=== PATIENT | female | born 1945 | race Caucasian/White ===

== ENCOUNTER → 2017-05-14 | Outpatient (CLI) | payer MEDICARE ==
[2015-09-03 22:36] VITALS: BP 178/90
--- NOTE | 2017-05-14 14:42 | RAD ---
Clinical Indication: Headache and head pressure for 6 months. Technique: Study is dated May 14, 2017. CT images of the head were obtained from the skull base to the vertex without IV contrast. Comparison is from September 06, 2015. One or more of the following individualized dose reduction techniques were utilized for this examination: 1. Automated exposure control 2. Adjustment of the mA and/or kV according to patient size 3. Use of iterative reconstruction technique Findings: There is diffuse, symmetric prominence of the ventricles and subarachnoid spaces consistent with age-related parenchymal volume loss. There are areas of scattered decreased attenuation in the supratentorial white matter. While nonspecific, findings are likely secondary to small vessel ischemic disease. There is no hemorrhage, extraaxial fluid collection, mass, or midline shift. There is no large vascular distribution infarct. The posterior fossa and brain stem are unremarkable. Orbits are normal. The visualized paranasal sinuses are clear. There is no skull fracture appreciated on bone level images. Impression: No acute intracranial findings. Brain parenchymal volume loss and mild probable small vessel ischemic disease.
== END | disposition home or self-care (01) ==
LOC: CT 10:43
PROVIDERS: ATTEND Family Medicine
DX: R51 Headache (principal); I10 Essential (primary) hypertension
CPT/HCPCS: 70450

== ENCOUNTER → 2017-11-04 | Outpatient (CLI) | payer MEDICARE ==
[2015-09-03 22:36] VITALS: BP 178/90
--- NOTE | 2017-11-04 16:51 | RAD ---
Right elbow ultrasound, 11/04/2017: HISTORY: Discoloration, intermittent lump The area of clinical concern along the posterior aspect of the elbow was carefully scanned. There is mild subcutaneous edema. Several small hyperechoic foci in the subcutaneous soft tissues probably represent prominent fat lobules. No suspicious mass or discrete fluid collection is seen to suggest hematoma or abscess. Electronically signed by: Justino Mireles MD (11/04/2017 4:47 PM) [facility]
== END | disposition home or self-care (01) ==
LOC: US 15:02
PROVIDERS: ATTEND Nurse Practitioner Adult Health
DX: S50.01XA Contusion of right elbow, initial encounter (principal); X58.XXXA Exposure to other specified factors, initial encounter; Y93.89 Activity, other specified; Y92.89 Other specified places as the place of occurrence of the external cause; Y99.8 Other external cause status
CPT/HCPCS: 76881

== ENCOUNTER → 2018-02-26 | Outpatient (CLI) | payer MEDICARE ==
[2015-09-03 22:36] VITALS: BP 178/90
--- NOTE | 2018-02-26 16:49 | RAD ---
PA and lateral chest radiograph. History: Shortness of air. Previous CT scan. Comparison: October 18, 2011. Findings: Cardiomediastinal silhouette is within normal limits for size. Bilateral lung chow appear clear without evidence of infiltrate, effusion, or pneumothorax. Multiple thoracic levels demonstrate marginal disc osteophytes. Impression: 1. No acute cardiopulmonary process. Electronically signed by: Alex Mendez MD (02/26/2018 4:45 PM) [place] [id number]
== END | disposition home or self-care (01) ==
LOC: CT 13:34
PROVIDERS: ATTEND Family Medicine
DX: I26.99 Other pulmonary embolism without acute cor pulmonale (principal)
CPT/HCPCS: 71046

== ENCOUNTER → 2018-03-11 | Outpatient (CLI) | payer MEDICARE ==
[2015-09-03 22:36] VITALS: BP 178/90
--- NOTE | 2018-03-11 14:02 | RAD ---
CT of the chest without contrast 03/11/2018 INDICATION: Former smoker. 63-08-lpmn-year history of smoking. COMPARISON STUDY: Chest radiograph February 18, 2018. TECHNIQUE: Multidetector CT imaging of the chest was performed without the administration of IV contrast. FINDINGS: Heart size is within normal limits. No pericardial effusion is identified. Coronary calcification is noted. No pathologically enlarged mediastinal lymph nodes are seen. Scattered small mediastinal lymph nodes are noted. Evaluation of the mediastinum is somewhat limited without contrast. The pulmonary arteries are dilated measuring 3.3 cm on the right and 3.7 cm on the left. Findings can relate to pulmonary arterial hypertension. The right thyroid is not visualized. Correlate with surgical history. Limited visualization of the upper abdomen demonstrates a somewhat poorly delineated rounded mass in the posterior right liver measuring 3.8 cm in diameter (axial image 280). The appearance is nonspecific. The attenuation characteristics are greater on the expected for simple cysts. The left kidney is lobulated in contour. A smaller calcification is seen in the superior pole left kidney. Small nonobstructing stone is possible. No evidence of acute osseous abnormality is identified. Diffuse osteopenia is noted. Mild to moderate centrilobular emphysematous changes are seen. Linear opacities are seen in the left upper lobe and to a lesser degree the left lower lobe. Findings are suggestive of scarring. No pneumothorax, pleural effusion, or focal consolidative infiltrate is seen. There are a few 1 to 2 mm subpleural opacities (reference nodule image 34 in the anterior left upper lobe). IMPRESSION: 1. Dilatation of the bilateral pulmonary arteries. Finding most commonly associated pulmonary arterial hypertension. 2. Mild to moderate centrilobular emphysema 3. 3.8 cm mildly hypoattenuating mass in the posterior right liver. Finding is nonspecific. Neoplasm not excluded. Multiphase hepatic MRI recommended for further characterization 4. Scattered 1 to 2 mm subpleural nodules. Recommend repeat CT chest in one year. Given provided history, annual CT screening may be appropriate. 5. Coronary calcifications. CT DOSING PQRS STATEMENT: One or more of the following individualized dose reduction techniques were utilized for this examination: 1. Automated exposure control 2. Adjustment of the mA and/or kV according to patient size 3. Use of iterative reconstruction technique Electronically signed by: Casa Baum MD (03/11/2018 1:59 PM) [facility]
== END | disposition home or self-care (01) ==
LOC: CT 12:47
PROVIDERS: ATTEND Internal Medicine Pulmonary Disease
DX: J43.2 Centrilobular emphysema (principal); I28.1 Aneurysm of pulmonary artery; R91.8 Other nonspecific abnormal finding of lung field; I25.10 Atherosclerotic heart disease of native coronary artery without angina pectoris; M85.88 Other specified disorders of bone density and structure, other site; Z87.891 Personal history of nicotine dependence
CPT/HCPCS: 71250

== ENCOUNTER 2018-08-05 09:39 | Emergency (ER) | payer MEDICARE ==
[~2018-08-05] VITALS: Ht 167.6 cm; Wt 105.2 kg
--- NOTE | 2018-08-05 09:59 | PHYS DOC ---
Past History Past Medical History: Arthritis, Asthma, High Cholesterol, Hypertension Past Surgical History: Hysterectomy Alcohol Use: None Drug Use: None Adult General Chief Complaint Chief Complaint: SHORTNESS OF BREATH HPI HPI Patient is a 73-year-old female who presents with difficulty breathing. This is been present for about the past month, much worse over the past week. She notes dyspnea with exertion as well as with laying flat and woke up at approximately 4 :00 this morning due to shortness of breath. Patient denies any cough. Denies any fever. Denies any travel, trauma, stasis, or known hypercoagulable state. She denies any new leg swelling and reports that her shoes fit the same as they always do. Patient notes that she was supposed to have an appointment with her primary care physician at approximately 4:30 today but felt that she could not wait until then. She also notes a feeling of fullness left lower chest, like she cannot take a deep breath "like there is a bra squeezing that area." She denies that this gets worse with exertion.[] Review of Systems Review of Systems Constitutional: Denies fever or chills [] Eyes: Denies change in visual acuity, redness, or eye pain [] HENT: Denies nasal congestion or sore throat [] Respiratory: Denies cough, see history of present illness [] Cardiovascular: No chest discomfort other than as noted in history of present illness, no palpitations[] GI: Denies abdominal pain, nausea, vomiting, bloody stools, she notes that she' s been having some diarrhea. Last time was earlier this week. Her is in an assisted care facility and is being treated for C. difficile. [] : Denies dysuria or hematuria [] Musculoskeletal: Denies back pain or joint pain [] Integument: Denies rash or skin lesions [] Neurologic: Denies headache, focal weakness or sensory changes [] Endocrine: Denies polyuria or polydipsia [] All other systems were reviewed and found to be within normal limits, except as documented in this note. Allergies Allergies Allergies Coded Allergies Type Severity Reaction Last Updated Verified Iodine and Iodide Containing Produc Allergy Intermediate 09/03/15 Yes cefazolin Allergy Intermediate 09/03/15 Yes codeine Allergy Intermediate 09/03/15 Yes morphine Allergy Intermediate 09/03/15 Yes shellfish derived Allergy Intermediate 4/4/16 Yes Physical Exam Physical Exam Constitutional: Well developed, well nourished, mild discomfort, pursed lip breathing, non-toxic appearance. [] HENT: Normocephalic, atraumatic, bilateral external ears normal, oropharynx moist, no oral exudates, nose normal. [] Eyes: PERRLA, EOMI, conjunctiva normal, no discharge. [] Neck: Normal range of motion, no tenderness, supple, no stridor. [] Cardiovascular:Heart rate regular rhythm, no murmur [] Lungs & Thorax: Bilateral breath sounds clear to auscultation [] Abdomen: Bowel sounds normal, soft, no tenderness, no masses, no pulsatile masses. [] Skin: Warm, dry, no erythema, no rash. [] Back: No tenderness, no CVA tenderness. [] Extremities: No tenderness, no cyanosis, no clubbing, ROM intact, 1+ pretibial edema. [] Neurologic: Alert and oriented X 3, normal motor function, normal sensory function, no focal deficits noted. [] Psychologic: Affect normal, judgement normal, mood normal. [] EKG EKG EKG shows a sinus rhythm at 97 bpm, axis of 152, QTC 459 ms, no ST elevations, compared with EKG of 10/18/2011, at by me at 1000[] Radiology/Procedures Radiology/Procedures CHEST PA LATERAL Clinical indications: SHORT OF BREATH COMPARISON: February 26, 2018. Findings: Hyperinflation is seen consistent with COPD. No acute lung infiltrate or pleural effusion or pulmonary edema or lung mass or pneumothorax is seen. The heart size, pulmonary vasculature, mediastinum and both kerry are unremarkable. The osseous structures appear intact. Impression: No acute radiographic abnormality is seen.[] Course & Med Decision Making Course & Med Decision Making Pertinent Labs and Imaging studies reviewed. (See chart for details) ED course: Patient arrived, was placed in bed, tolerated exam well, and was given a breathing treatment. She felt much better after the breathing treatment. She was able to ambulate of about the emergency department with an oxygen saturation maintained between 96-98%. For her the option for admission given her concern with her difficulty breathing this morning especially at 4:00 when she woke up. She defers admission at this time especially in light of having an appointment later today with her primary care physician. Laboratory and imaging findings were discussed with the patient who voiced understanding. All questions were answered. Patient was discharged in improved condition. Medical decision making: Initially concerned about COPD exacerbation versus CHF , especially in light of the orthopnea, along with her purse lip breathing, and hypoxia when she first sat on the emergency department bed. None of these seem to be present. No evidence of acute coronary syndrome, no pneumonia, no pneumothorax.[] Dragon Disclaimer Dragon Disclaimer This electronic medical record was generated, in whole or in part, using a voice recognition dictation system. Departure Departure: Impression: Primary Impression: COPD exacerbation Disposition: HOME, SELF-CARE Condition: IMPROVED Referrals: GRAEME EDWARDS MD (PCP) Keep your appointment this afternoon Patient Instructions: Chronic Obstructive Pulmonary Disease Exacerbation Additional Instructions: Follow-up with your primary care physician appointment this afternoon. Return to the ER if worsening difficulty breathing or any other concerns. Scripts Nebulizer (Innospire Go Nebulizer) 1 Each Each EACH for chronic lung disease, #1 Use with nebulized medications Prov: GELA HARRINGTON DO 08/05/18 Prednisone (PREDNISONE) 50 Mg Tablet 1 TAB PO DAILY for INFLAMMATION, #5 TAB Prov: GELA HARRINGTON DO 08/05/18 Ipratropium Dilliner (IPRATROPIUM BROMIDE) 0.2 Mg/1 Ml Solution 1 VIAL NEB Q6HRS for difficulty breathing, #1 B 0 Refills Prov: GELA HARRINGTON DO 08/05/18 GELA HARRINGTON DO Aug 05, 2018 09:59
[2018-08-05] MEDS ORDERED: FUROSEMIDE 40 MG/4 ML VIAL IVP ONE (10:00)
[2018-08-05] MEDS ORDERED: IPRATROPIUM BROMIDE 0.5 MG/2.5 ML NEBU. NEB ONE (10:00)
[2018-08-05 10:18] LABS: BASO # 0.1 x10^3/uL (0.0-0.2); BASO % 1 % (0-3); EOS # 0.1 x10^3/uL (0.0-0.7); EOS % 2 % (0-3); HEMATOCRIT 44.9 % (36.0-47.0); HEMOGLOBIN 14.8 g/dL (12.0-15.5); LYMPH # 1.1 x10^3/uL (1.0-4.8); LYMPH % 22 % (24-48); MEAN CORPUSCULAR HEMOGLOBIN 29 pg (25-35); MEAN CORPUSCULAR HGB CONC 33 g/dL (31-37); MEAN CORPUSCULAR VOLUME 89 fL (79-100); MONO # 0.4 x10^3/uL (0.0-1.1); MONO % 7 % (0-9); NEUT # 3.4 x10^3uL (1.8-7.7); NEUT % 67 % (31-73); PLATELET COUNT 255 x10^3/uL (140-400); RED BLOOD COUNT 5.05 x10^6/uL (3.50-5.40); RED CELL DISTRIBUTION WIDTH 13.1 % (11.5-14.5)
[2018-08-05] MEDS ORDERED: ALBUTEROL SULFATE 2.5 MG/3 ML NEBU. ONE (10:28)
[2018-08-05] MEDS ORDERED: ALBUTEROL SULFATE 2.5 MG/3 ML NEBU. NEB ONE (10:30)
[2018-08-05 10:32] LABS: ALBUMIN 3.7 g/dL (3.4-5.0); ALBUMIN/GLOBULIN RATIO 1.1 (1.0-1.7); CALCIUM 9.5 mg/dL (8.5-10.1); CREATININE 0.8 mg/dL (0.6-1.0); GFR 70.5; POTASSIUM 4.2 mmol/L (3.5-5.1); TOTAL BILIRUBIN 0.8 mg/dL (0.2-1.0)
--- NOTE | 2018-08-05 10:37 | RAD ---
CHEST PA LATERAL Clinical indications: SHORT OF BREATH COMPARISON: February 26, 2018. Findings: Hyperinflation is seen consistent with COPD. No acute lung infiltrate or pleural effusion or pulmonary edema or lung mass or pneumothorax is seen. The heart size, pulmonary vasculature, mediastinum and both kerry are unremarkable. The osseous structures appear intact. Impression: No acute radiographic abnormality is seen. Electronically signed by: Eric Winslow MD (08/05/2018 10:34 AM) [facility]
[2018-08-05 10:39] LABS: BACTERIA,URINE 0 /HPF (0-FEW); BILIRUBIN,URINE NEG (NEG); CLARITY,URINE HAZY; COLOR,URINE STRAW; GLUCOSE,URINE NEG (NEG); NITRITE,URINE NEG (NEG); RBC,URINE 0 /HPF (0-2); SQUAMOUS EPITHELIAL CELL,UR OCC /LPF; UROBILINOGEN,URINE 0.2 mg/dL (0.2 mg/dL); WBC,URINE 0 /HPF (0-4)
[2018-08-05 11:12] VITALS: BP 150/78
[2018-08-05] MEDS ORDERED: NEBU-129 MC (11:25)
[2018-08-05] MEDS ORDERED: PRED50TA PO (11:25)
[2018-08-05] MEDS ORDERED: IPRA0.2S5 NEB (11:25)
--- NOTE | 2018-08-05 18:08 | EKG ---
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
== END 2018-08-05 11:29 | disposition home or self-care (01) ==
LOC: ER 09:39
DX: J44.1 Chronic obstructive pulmonary disease with (acute) exacerbation (principal); R19.7 Diarrhea, unspecified; M19.90 Unspecified osteoarthritis, unspecified site; J45.909 Unspecified asthma, uncomplicated; E78.00 Pure hypercholesterolemia, unspecified; I10 Essential (primary) hypertension; Z91.041 Radiographic dye allergy status; Z88.5 Allergy status to narcotic agent; Z88.1 Allergy status to other antibiotic agents; Z91.013 Allergy to seafood
CPT/HCPCS: 36415; 71046; 80053; 81001; 83880; 84484; 85025; 85610; 93005; 94640; 96374; 99284; J1940; J7613; J7644

== ENCOUNTER → 2019-03-15 | Outpatient (CLI) | payer MEDICARE ==
[~2019-03-15] MED LIST: IPRA0.2S5 NEB; NEBU-129 MC; PRED50TA PO
--- NOTE | 2019-03-15 17:31 | RAD ---
Examination: CT CHEST WO CONTRAST History: Lung nodule Comparison/Correlation: 03/11/2018 CT chest without contrast Findings: Axial images of the chest were obtained without contrast. Sagittal and coronal reformatted images were provided. Emphysematous involvement of the lung chow noted. Linear scarring or atelectasis involving the lower lung chow noted. No infiltrate or pleural effusion. No suspicious pulmonary nodule or mass. Minimal right lower lobe bronchiectasis is present. Several punctate pulmonary nodules bilaterally are present unchanged compared to previous exam. No enlarged thoracic lymph nodes. Small gallstone in the gallbladder. Right hepatic lobe 3.1 cm diameter hypoattenuating mass is similar in appearance to the prior exam. Impression: No suspicious pulmonary nodule or mass. Emphysematous involvement of the lung chow. No change in right hepatic lobe mass. Consider follow-up liver MRI without and with contrast if able in 6 months for further characterization and to assess stability. Cholelithiasis. PQRS Compliance Statement: One or more of the following individualized dose reduction techniques were utilized for this examination: 1. Automated exposure control 2. Adjustment of the mA and/or kV according to patient size 3. Use of iterative reconstruction technique Electronically signed by: Frank Donovan MD (03/15/2019 5:28 PM) [facility]
== END | disposition home or self-care (01) ==
LOC: CT 11:15
PROVIDERS: ATTEND Internal Medicine Pulmonary Disease
DX: J43.9 Emphysema, unspecified (principal); K80.20 Calculus of gallbladder without cholecystitis without obstruction; J47.9 Bronchiectasis, uncomplicated; R91.8 Other nonspecific abnormal finding of lung field; R16.0 Hepatomegaly, not elsewhere classified; Z87.891 Personal history of nicotine dependence
CPT/HCPCS: 71250

== ENCOUNTER → 2019-07-19 | Outpatient (CLI) | payer MEDICARE ==
--- NOTE | 2019-07-26 13:38 | RAD ---
History: Routine screening. Technique: Bilateral digital mammographic routine views were obtained with 2-D and 3-D technique, including use of CAD - computer aided detection. Comparison: Bilateral mammogram of February 09, 2014.. Findings: Breast Tissue Density B :The breast tissue is composed of mixed fatty and fibroglandular tissue. There are no suspicious masses, microcalcifications or areas of architectural distortion. Gradual involutional changes in the breast parenchyma is noted with better visibility of an oval, circumscribed subareolar anterior right breast nodule that with the benefit of retrospective review shows no significant interval change, and is favored to represent a benign intramammary lymph node. Impression: Benign findings on bilateral mammogram. No evidence of malignancy. BI-RADS Category 2: Benign. Normal interval followup. A mammogram does not have 100% sensitivity and therefore a negative imaging study should not delay further work up of a suspicious abnormality. The patient will receive a letter with the results in the mail. Patient information is entered into the reminder system with a target due date for the next screening mammogram. The patient will receive a reminder. "Our facility is accredited by the [employer] Mammography Program." BI-RADS 2 -- benign findings
== END | disposition home or self-care (01) ==
LOC: MAMMO 14:58
PROVIDERS: ATTEND Family Medicine
DX: Z12.31 Encounter for screening mammogram for malignant neoplasm of breast (principal); Z00.00 Encounter for general adult medical examination without abnormal findings
CPT/HCPCS: 77063; 77067